=== PATIENT | male | born 1995 | race Two or more races ===

== ENCOUNTER 2024-09-26 22:19 | Emergency (ER) | payer BC ==
[~2024-09-26] VITALS: Ht 182.9 cm; Wt 135.5 kg
[2024-09-26 22:20] VITALS: TEMP 98.6
[2024-09-26] MEDS: normal saline 1000ML IV soln IVB ONE (23:03)
[2024-09-26 23:12] LABS: MEAN PLATELET VOLUME 8.1 FL (7.4-10.4); RED CELL DISTRIBUTION WIDTH 12.9 % (11.5-14.5)
[2024-09-26 23:26] LABS: CREATININE 1.30 MG/DL (0.60-1.10); TOTAL CARBON DIOXIDE 28.8 MMOL/L (24-32); eCRCL 93 ML/MIN; eGFR 66 ML/MIN
--- NOTE | 2024-09-26 23:37 | Physician Documentation ---
History of Present Illness ~ Chief Complaint: Bloody Stools Stated Complaint: ABD PAIN RECTAL BLEEDING Time Seen by MD: 23:00 Source: patient Mode of Arrival: POV, Ambulatory Exam Limitations: no limitations HPI Chief Complaint: Bright red blood per rectum Caveat: None Independent Historians: None History of Present Illness: Patient is a 29-year-old man who started to have nausea and vomiting and diarrhea on at 9:00 p.m.. 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 He was told from the line he went to [facility] where he received Zofran and Imodium. Patient has not had any diarrhea since last night in the Imodium appears to be working. Patient is no longer having nausea and vomiting. The patient has been drinking fluids today and did eat dinner. This evening the patient had a bowel movement with normal brown stool and bright red blood. This occurred once. No black stool/melena. Patient has had diffuse abdominal discomfort/pain that is 5/10. Describes the pain is crampy and constant. Patient states that there was an E coli break out with diarrhea on August 21 and August 22. Review of systems: All systems were reviewed and are negative except for what is indicated in the history of present illness. Past Medical History: None Past Surgical History: None Social History: No tobacco use, no alcohol use, no drug use Medications: Reviewed as documented Nursing Notes Allergies: Reviewed as documented in Nursing Notes Medication Reconciliation Allergies: Uncoded Allergies: PENCILLIN (Allergy, Mild, Rash, 09/26/24) Review of Systems All Other Systems at this time: Reviewed and Negative ROS Patient denies any other acute symptoms other than above. All other systems are negative Physical Exam Vital Signs: RN Vital Signs have been reviewed: Yes, Temperature: 98.6, Source: Oral, Heart Rate: 84, Respiratory Rate: 15, BP: 122/89, Pulse Oximetry: 98, Weight: 135.500 Oxygen Flow Rate: 0 Pulse Oximetry Reflects: adequate oxygenation Physical Exam General Appearance: No distress HEENT: Normal OP, moist oral mucosa, PERRL, EOMI Neck: supple, normal ROM, trachea midline Pulmonary: No respiratory distress, CTA, BS equal Cardiac: RRR, no murmur, rub or gallop, GI: nondistended, soft, nontender, normal bowel sounds, no guarding, no rebound Rectal: No stool in the rectal vault, no evidence of internal external hemorrhoids, guaiac negative. Controls appropriate. Extremities: normal ROM, no swelling, non-tender Skin: intact, dry, warm, no rashes Neuro: AAOx3, speech is clear, no focal motor weakness Psych: normal affect, good eye contact, no apparent hallucination, normal speech Progress Results/Orders Results/Orders Completed Orders - LYRIC ALVARADO MD Urinalysis, Cult If Indicated (09/26/24 22:56) Cbc/Diff (09/26/24 22:56) BMP (09/26/24 22:56) Lipase (09/26/24 22:56) CMP (09/26/24 22:56) Normal Saline 1000ml (0.9% Sodium Chlori (09/26/24 23:00) Ketorolac Trometh 15mg/Ml Vial (Toradol (09/26/24 23:40) Medications Received in ER Medications (Trade) Dose Ordered Sig/More[place] Route PRN Reason Start Time Stop Time Status Last Admin Dose Admin (0.9% sodium chloride (NS) 1000ml IV soln) 1,000 ml ONCE ONCE IVB 09/26/24 23:00 09/26/24 23:01 DC 09/26/24 23:03 1,000 ML Vital Signs 09/26/24 09/26/24 09/26/24 09/27/24 22:20 22:52 23:05 00:32 Temp 98.6 Pulse 88 84 74 Resp 18 16 15 16 B/P (MAP) 154/99 122/89 (100) 121/79 Pulse Ox 96 98 98 O2 Flow Rate 0 Laboratory Tests Test 09/26/24 23:03 09/26/24 23:50 White Blood Count 9.3 Red Blood Count 4.48 L Hemoglobin 13.6 L Hematocrit 40.1 L Mean Corpuscular Volume 89.5 Mean Corpuscular Hemoglobin 30.3 Mean Corpuscular Hemoglobin Concent 33.9 Red Cell Distribution Width 12.9 Platelet Count 225 Mean Platelet Volume 8.1 Neutrophils (%) (Auto) 57.3 Lymphocytes (%) (Auto) 30.4 Monocytes (%) (Auto) 8.7 Eosinophils (%) (Auto) 2.9 Basophils (%) (Auto) 0.7 Neutrophils # (Auto) 5.3 Lymphocytes # (Auto) 2.8 Monocytes # (Auto) 0.8 Eosinophils # (Auto) 0.3 Basophils # (Auto) 0.1 CBC Comment Sodium Level 138 Potassium Level 3.8 Chloride Level 103 Carbon Dioxide Level 28.8 Anion Gap 6 L Blood Urea Nitrogen 18 Creatinine 1.30 H Estimated GFR/1.73 m2 66 BUN/Creatinine Ratio 13.8 Glucose Level 111 H Calcium Level 9.0 Total Bilirubin 0.3 Aspartate Amino Transf (AST/SGOT) 27 Alanine Aminotransferase (ALT/SGPT) 95 H Alkaline Phosphatase 86 Total Protein 7.2 Albumin 4.2 Globulin 3.0 Albumin/Globulin Ratio 1.4 Lipase 43 Chemistry Comments Urine Specimen Description Cln catch midstream Urine Color Yellow Urine Clarity Clear Urine pH 6.5 Urine Specific [place] 1.010 Urine Protein Negative Urine Glucose (UA) Negative Urine Ketones Negative Urine Occult Blood Negative Urine Nitrite Negative Urine Bilirubin Negative Urine Urobilinogen 0.2 Urine Leukocyte Esterase Negative Urine Culture Indicated Not ind Volume Urine Centrifuged 10 ml Urine Comment Medical Decision Making Findings Differential diagnosis includes but is not limited to: VIRAL GASTROENTERITIS, BACTERIAL GASTROENTERITIS, DIVERTICULAR BLEED, INTERNAL HEMORRHOID, EXTERNAL HEMORRHOIDS, ARTERIOVENOUS MALFORMATION, FOOD POISONING Laboratory data independent interpretation: CBC: UNREMARKABLE, HEMOGLOBIN IS JUST BELOW NORMAL AT 13.6 CMP: Unremarkable except for a mildly elevated creatinine of 1.3 Urinalysis: Emergency department course/medical decision-making: Patient has had nausea vomiting and diarrhea that has been treated with Zofran and Imodium. That has appeared to be effective. Patient has not had any vomiting or diarrhea since last night. However the patient had episode of hematochezia. However he has no formed stool. This is not thought to be an infectious cause for the hematochezia. No evidence of internal external hemorrhoids. Patient's guaiac was negative. Patient is stable for discharge. Patient is given 1 L of normal saline and Toradol 15 mg IV. Patient's pain is extremely mild 2/10. I do not suspect the patient has bacterial enteritis such as E coli. Patient is stable for discharge. He is instructed to return if his diarrhea returns, abdominal pain worsens or if he develops a fever. Departure Time of Disposition: 23:33 Disposition: 01 HOME / SELF CARE / HOMELESS Impression: Primary Impression: Hematochezia Condition: Improved Discharge Instructions: Rectal Bleeding, [id number], Viral Gastroenteritis, Adult, [id number] Additional Instructions: THE CAUSE FOR THE BLOOD IS UNKNOWN. IT IS NOT THOUGHT TO BE FROM AN INFECTION. CAUSE FOR YOUR VOMITING AND DIARRHEA EARLIER IS UNKNOWN. RETURN TO THE EMERGENCY DEPARTMENT IF YOUR SYMPTOMS WORSEN OR IF YOU HAVE RECURRENT BLEEDING. THIS IS EXPECTED TO BE LIKELY SELF-LIMITING. Education Educated: Patient Educated regarding: diagnosis, treatment, need for follow up Signature Scribe Signature: No scribe Attestation: No scribe LYRIC ALVARADO MD Sep 26, 2024 23:37
[2024-09-26] MEDS: ketorolac trometh 15mg/ml vial 15 MG/ML ML IV ONE (23:55)
[2024-09-27 00:01] LABS: LEUKOCYTE ESTERASE ,URINE NEGATIVE (Neg); NITRITES, URINE NEGATIVE (Neg); OCCULT BLOOD,URINE NEGATIVE (Neg)
[2024-09-27 00:06] LABS: UA COLLECTION TYPE CLN CATCH MIDSTREAM
[2024-09-27 00:32] VITALS: BP 121/79; PULSE 74; RESP 16; O2SAT 98
== END 2024-09-27 00:39 | disposition home or self-care (01) ==
LOC: ER 22:20
DX: K92.1 Melena (principal)
CPT/HCPCS: 36415; 80053; 81003; 83690; 85025; 96360; 99283; J7030; A6258